=== PATIENT | female | born 1980 | race Caucasian/White ===

== ENCOUNTER 2018-07-04 12:23 | Emergency (ER) | payer OTHER ==
[2018-07-04 13:19] VITALS: BMI 29.7
[2018-07-04 13:20] VITALS: O2SAT 100
[2018-07-04] MEDS ORDERED: Iohexol 240 (50 ml) PO ONE (13:47)
[2018-07-04] MEDS ORDERED: Sodium Chloride 0.9% 1,000 ML IV STA (13:49)
[2018-07-04 14:32] LABS: BASO # 0.1 K/uL (0.0-0.2); BASO % 1.4 % (0.0-2.0); EOS # 0.3 K/uL (0.0-0.7); EOS % 5.7 % (0.0-4.0); HEMOGLOBIN 11.1 g/dL (12.0-16.0); LYMPH # 2.2 K/uL (1.0-4.3); LYMPH % 36.9 % (20.0-40.0); MEAN CELL VOLUME 89.5 fl (81.0-99.0); MEAN CORPUSCULAR HEMOGLOBIN 29.9 pg (27.0-31.0); MEAN CORPUSCULAR HGB CONC 33.4 g/dL (33.0-37.0); MEAN PLATELET VOLUME 8.6 fl (7.2-11.7); MONO # 0.6 K/uL (0.0-0.8); MONO % 9.5 % (0.0-10.0); NEUT # 2.8 K/uL (1.8-7.0); NEUT % 46.5 % (50.0-75.0); NRBC % 0.1 % (0.0-0.0); RBC 3.72 Mil/uL (3.80-5.20); RED CELL DISTRIBUTION WIDTH 13.2 % (11.5-14.5)
[2018-07-04] MEDS ORDERED: Iohexol 240 (50 ml) ONE (15:04)
[2018-07-04 15:09] LABS: SQUAMOUS EPITHIAL 5 /hpf (0-5); URINE BACTERIA RARE (<OCC); URINE BILIRUBIN NEGATIVE (NEGATIVE); URINE BLOOD NEGATIVE (NEGATIVE); URINE CLARITY SLIGHTY-CLOUDY (Clear); URINE COLOR YELLOW (YELLOW); URINE GLUCOSE (UA) NEG (NEGATIVE); URINE HYALINE CAST 0-2 /hpf (0-2); URINE LEUKOCYTE ESTERASE NEG Leu/uL (Negative); URINE PROTEIN NEGATIVE (NEGATIVE); URINE UROBILINOGEN 0.2-1.0 mg/dL (0.2-1.0)
[2018-07-04 15:14] LABS: ALB/GLOB RATIO 1.2 (1.0-2.1); ALBUMIN 3.9 g/dL (3.5-5.0); BLOOD UREA NITROGEN 16 mg/dl (7-17); GFR NON-AFRICAN AMERICAN > 60; LIPASE 71 U/L (23-300)
[2018-07-04 15:16] LABS: ALT/SGPT 16 U/L (9-52); AST/SGOT 27 U/L (14-36)
[2018-07-04] MEDS ORDERED: Sodium Chloride 0.9% 50 ML IV ONE (17:00)
[2018-07-04] MEDS ORDERED: Iohexol 300 100 ML IJ ONE (17:00)
--- NOTE | 2018-07-04 17:45 | US ---
Date of service: 07/04/2018 HISTORY: EVALUATE FOR RIGHT OVARIAN CYST/TORSION COMPARISON: None available. TECHNIQUE: Transvaginal pelvic ultrasound was performed. FINDINGS: UTERUS: Measures 7.5 x 6.1 x 3.8 cm. Anteverted and bulky. There is a 4.8 x 4.2 x 3.5 cm posterior wall intramural lower uterine segment fibroid. ENDOMETRIUM: Measures 5.0 mm in diameter. Normal in appearance. CERVIX: No cervical abnormality identified. RIGHT OVARY: Measures 2.8 x 2.7 x 2.1 cm. No solid mass. Normal flow. LEFT OVARY: Measures 4.0 x 3.6 x 3.1 cm. No solid mass. Normal flow. There is a 2.9 x 2.6 x 2.3 cm simple cyst. FREE FLUID: No significant free fluid noted. OTHER FINDINGS: None. IMPRESSION: 1. 4.8 x 4.2 x 3.5 cm posterior wall intramural fibroid in the lower uterine segment. 2. 2.9 x 2.6 x 2.3 cm simple cyst in the left ovary.
--- NOTE | 2018-07-04 17:54 | CT ---
Date of service: 07/04/2018 PROCEDURE: CT Abdomen and Pelvis with contrast HISTORY: R/O APPENDICITIS/RLQ PAIN COMPARISON: Pelvic ultrasound performed the same day. TECHNIQUE: CT scan of the abdomen and pelvis was performed after administration of intravenous contrast. Oral contrast was administered. Coronal and sagittal reformatted images were obtained. Contrast dose: 95 mL Omnipaque 300 Radiation dose: Total exam DLP = 667.22 mGy-cm. This CT exam was performed using one or more of the following dose reduction techniques: Automated exposure control, adjustment of the mA and/or kV according to patient size, and/or use of iterative reconstruction technique. FINDINGS: LOWER THORAX: The visualized lungs are clear. LIVER: Mild hepatomegaly and fatty liver. Normal homogeneous enhancement. There is a 9 mm simple cyst in the left hepatic lobe. A 2nd tiny low-attenuation lesion in the left hepatic lobe is too small to characterize by CT criteria. No intrahepatic biliary ductal dilatation. GALLBLADDER AND BILE DUCTS: Partially contracted. No calcified gallstones, wall thickening or pericholecystic fluid. PANCREAS: Normal in size with homogeneous enhancement. No gross lesion or ductal dilatation. SPLEEN: Normal in size and appearance. ADRENALS: No discrete nodule. KIDNEYS AND URETERS: Normal in size with homogeneous enhancement. No hydronephrosis. No solid mass. VASCULATURE: No aortic aneurysm. There are no aortic atherosclerotic calcifications or mural plaque present. BOWEL: The small bowel loops are normal in caliber. The colon is grossly normal in appearance. No bowel wall thickening or obstruction. APPENDIX: Normal appendix. PERITONEUM: No free fluid. No free air. LYMPH NODES: No enlarged lymph nodes. BLADDER: Partially decompressed. REPRODUCTIVE: The uterus is anteverted and bulky. There is a 4.0 x 3.8 cm posterior wall intramural fibroid in the lower uterine segment. There is a 2.6 x 2.1 cm simple cyst in the left ovary. BONES: No acute fracture. Within normal limits for the patient's age. OTHER FINDINGS: None. IMPRESSION: 1. No CT evidence for acute appendicitis. 2. 4.0 x 3.8 cm posterior wall intramural fibroid in the lower uterine segment. 3. 2.6 x 2.1 cm simple cyst in the left ovary. 4. Mild hepatomegaly and fatty liver.
--- NOTE | 2018-07-04 18:08 | ED PDOC ---
HPI: Abdomen Time Seen by Provider: 07/04/18 13:39 Chief Complaint (Nursing): Abdominal Pain Chief Complaint (Provider): Abdominal pain History Per: Patient History/Exam Limitations: no limitations Onset/Duration Of Symptoms: Other (x1 month) Current Symptoms Are (Timing): Still Present Location Of Pain/Discomfort: RLQ Associated Symptoms: Diarrhea. denies: Fever, Chills, Vomiting Additional Complaint(s): 37 year old female was sent to the ED from an urgent care complaining of right lower quadrant pain for a month but worsening over the past day. She notes having diarrhea for a couple of days. Denies fever, chills, or vomiting. PMD: none provided Past Medical History Reviewed: Historical Data, Nursing Documentation, Vital Signs Vital Signs: Last Vital Signs Temp 98.1 F 07/04/18 13:19 Pulse 79 07/04/18 13:19 Resp 20 07/04/18 13:19 BP 118/78 07/04/18 13:19 Pulse Ox 100 07/04/18 13:19 - Medical History PMH: Anxiety - Surgical History Surgical History: No Surg Hx - Family History Family History: States: Unknown Family Hx - Home Medications Home Medications: Ambulatory Orders Medication Instructions Recorded Norgestimate-Ethinyl Estradiol 1 tab PO DAILY 12/10/15 [Trinessa Tablet] Oxycodone HCl/Acetaminophen 1 tab PO Q6H PRN 12/10/15 [Percocet 5-325 mg Tablet] QUEtiapine [SEROquel] 75 mg PO HS 12/10/15 Ibuprofen [Motrin] 600 mg PO Q8 PRN #10 tab 07/04/18 - Allergies Allergies/Adverse Reactions: Allergies Allergy/AdvReac Type Severity Reaction Status Date / Time prednisone Allergy RASH Verified 07/04/18 13:24 Review of Systems ROS Statement: Except As Marked, All Systems Reviewed And Found Negative Constitutional: Negative for: Fever, Chills Gastrointestinal: Positive for: Abdominal Pain, Diarrhea. Negative for: Vomiting Physical Exam - Reviewed Nursing Documentation Reviewed: Yes Vital Signs Reviewed: Yes - Physical Exam Appears: Positive for: Non-toxic, No Acute Distress Head Exam: Positive for: ATRAUMATIC, NORMOCEPHALIC Skin: Positive for: Normal Color, Warm, Dry Eye Exam: Positive for: Normal appearance Neck: Positive for: Normal, Painless ROM Cardiovascular/Chest: Positive for: Regular Rate, Rhythm Respiratory: Positive for: Normal Breath Sounds. Negative for: Wheezing, Respiratory Distress Gastrointestinal/Abdominal: Positive for: Tenderness (right lower quadrant) Extremity: Positive for: Normal ROM Neurological/Psych: Positive for: Awake, Alert, Normal Tone - Laboratory Results Result Diagrams: 07/04/18 14:20 07/04/18 14:50 Lab Results: Total Bilirubin 0.3 mg/dl (0.2-1.3) 07/04/18 14:50 AST 27 U/L (14-36) 07/04/18 14:50 ALT 16 U/L (9-52) 07/04/18 14:50 Alkaline Phosphatase 41 U/L (38-126) 07/04/18 14:50 Total Protein 7.3 G/DL (6.3-8.2) 07/04/18 14:50 Albumin 3.9 g/dL (3.5-5.0) 07/04/18 14:50 Globulin 3.4 gm/dL (2.2-3.9) 07/04/18 14:50 Albumin/Globulin Ratio 1.2 (1.0-2.1) 07/04/18 14:50 Lipase 71 U/L (23-300) 07/04/18 14:50 Urine Color Yellow (YELLOW) 07/04/18 14:56 Urine Clarity Slighty-cloudy (Clear) 07/04/18 14:56 Urine pH 7.0 (5.0-8.0) 07/04/18 14:56 Ur Specific [place] 1.025 (1.003-1.030) 07/04/18 14:56 Urine Protein Negative mg/dL (NEGATIVE) 07/04/18 14:56 Urine Glucose (UA) Neg mg/dL (NEGATIVE) 07/04/18 14:56 Urine Ketones Negative mg/dL (NEGATIVE) 07/04/18 14:56 Urine Blood Negative (NEGATIVE) 07/04/18 14:56 Urine Nitrate Negative (NEGATIVE) 07/04/18 14:56 Urine Bilirubin Negative (NEGATIVE) 07/04/18 14:56 Urine Urobilinogen 0.2-1.0 mg/dL (0.2-1.0) 07/04/18 14:56 Ur Leukocyte Esterase Neg Emma/uL (Negative) 07/04/18 14:56 Urine RBC (Auto) 3 /hpf (0-3) 07/04/18 14:56 Urine Microscopic WBC 1 /hpf (0-5) 07/04/18 14:56 Ur Squamous Epith Cells 5 /hpf (0-5) 07/04/18 14:56 Urine Bacteria Rare (<OCC) 07/04/18 14:56 Hyaline Casts 0-2 /hpf (0-2) 07/04/18 14:56 - ECG O2 Sat by Pulse Oximetry: 100 (RA) Pulse Ox Interpretation: Normal Medical Decision Making Medical Decision Making: Initial Impression: abdominal pain Initial Plan: --CT abd/pelvis --CMP --Lipase stat --ED urine --ED urine dipstick --CBC --Sodium chloride 1000mL IV --Iohexol 50mL PO --Toradol 15mg IV --Urine culture --Urinalysis --Transvaginal US 17:42 Transvaginal US FINDINGS: UTERUS: Measures 7.5 x 6.1 x 3.8 cm. Anteverted and bulky. There is a 4.8 x 4.2 x 3.5 cm posterior wall intramural lower uterine segment fibroid. ENDOMETRIUM: Measures 5.0 mm in diameter. Normal in appearance. CERVIX: No cervical abnormality identified. RIGHT OVARY: Measures 2.8 x 2.7 x 2.1 cm. No solid mass. Normal flow. LEFT OVARY: Measures 4.0 x 3.6 x 3.1 cm. No solid mass. Normal flow. There is a 2.9 x 2.6 x 2.3 cm simple cyst. FREE FLUID: No significant free fluid noted. OTHER FINDINGS: None. IMPRESSION: 1. 4.8 x 4.2 x 3.5 cm posterior wall intramural fibroid in the lower uterine segment. 2. 2.9 x 2.6 x 2.3 cm simple cyst in the left ovary. 17:50 CT abd/pelvis FINDINGS: LOWER THORAX: The visualized lungs are clear. LIVER: Mild hepatomegaly and fatty liver. Normal homogeneous enhancement. There is a 9 mm simple cyst in the left hepatic lobe. A 2nd tiny low-attenuation lesion in the left hepatic lobe is too small to characterize by CT criteria. No intrahepatic biliary ductal dilatation. GALLBLADDER AND BILE DUCTS: Partially contracted. No calcified gallstones, wall thickening or pericholecystic fluid. PANCREAS: Normal in size with homogeneous enhancement. No gross lesion or ductal dilatation. SPLEEN: Normal in size and appearance. ADRENALS: No discrete nodule. KIDNEYS AND URETERS: Normal in size with homogeneous enhancement. No hydronephrosis. No solid mass. VASCULATURE: No aortic aneurysm. There are no aortic atherosclerotic calcifications or mural plaque present. BOWEL: The small bowel loops are normal in caliber. The colon is grossly normal in appearance. No bowel wall thickening or obstruction. APPENDIX: Normal appendix. PERITONEUM: No free fluid. No free air. LYMPH NODES: No enlarged lymph nodes. BLADDER: Partially decompressed. REPRODUCTIVE: The uterus is anteverted and bulky. There is a 4.0 x 3.8 cm posterior wall intramural fibroid in the lower uterine segment. There is a 2.6 x 2.1 cm simple cyst in the left ovary. BONES: No acute fracture. Within normal limits for the patient's age. OTHER FINDINGS: None. IMPRESSION: 1. No CT evidence for acute appendicitis. 2. 4.0 x 3.8 cm posterior wall intramural fibroid in the lower uterine segment. 3. 2.6 x 2.1 cm simple cyst in the left ovary. 4. Mild hepatomegaly and fatty liver. Scribe Attestation: Documented by Toi Guillen acting as a scribe for Ariela MIDDLETON. Provider Scribe Attestation: All medical record entries made by the Scribe were at my direction and personally dictated by me. I have reviewed the chart and agree that the record accurately reflects my personal performance of the history, physical exam, medical decision making, and the department course for this patient. I have also personally directed, reviewed, and agree with the discharge instructions and disposition. Disposition - Clinical Impression Clinical Impression: Abdominal pain in female - Patient ED Disposition Is Patient to be Admitted: No - Disposition Referrals: Nadir Hopkins MD, PhD [Staff Provider] - [facility] [Outside] Disposition: Routine/Home Disposition Time: 18:26 Condition: FAIR Prescriptions: Ibuprofen [Motrin] 600 mg PO Q8 PRN #10 tab PRN Reason: Pain, Moderate (4-7) Instructions: Acute Abdomen (Belly Pain) Forms: [facility] ED School/Work Excuse
[2018-07-04 18:32] VITALS: BP 117/77; PULSE 70; RESP 16; TEMP 98.4
== END 2018-07-04 18:55 | disposition home or self-care (01) ==
LOC: H.ER 12:23
DX: R10.31 Right lower quadrant pain (principal)
CPT/HCPCS: 74177; 76830; 80053; 81003; 81025; 83690; 85025; 87086; 96361; 96374; 99285; J1885; J7030; Q9966; Q9967